=== PATIENT | female | born 1940 | race Caucasian/White ===

== ENCOUNTER 2016-10-08 09:45 | Inpatient (IN) | payer OTHER, MEDICARE ==
[~2016-10-08] VITALS: Ht 154.9 cm; Wt 56.7 kg
[~2016-10-08 09:45] MED LIST: ATI0.5 PO; BENAZEPRIL HCL/1 TAB; FER300 PO; FOL1 PO; GLU500 PO; LAC PO; LEVAQUIN250 MG PO; METFORMIN ER500 M1 PO; PROZ10 PO; THERAGRAN-M1 TA4 PO; THI100 PO
[2016-10-08] MEDS ORDERED: LIPI20 PO (10:12)
[2016-10-08] MEDS ORDERED: LASIX40 MG PO (10:13)
[2016-10-08] MEDS ORDERED: ONDANSETRON4 M3 PO (10:13)
[2016-10-08] MEDS ORDERED: ALDACTONE25 MG PO (10:13)
[2016-10-08] MEDS ORDERED: GLUCOPHAGE XR500 MG PO (10:13)
[2016-10-08] MEDS ORDERED: DIOVAN40 MG PO (10:14)
[2016-10-08 10:26] LABS: CARBON DIOXIDE 28.4 mmol/L (21-32); CHLORIDE SERUM 108 mmol/L (98-107); CREATININE SERUM 0.8 mg/dL (0.6-1.0); GLUCOSE SERUM 115 mg/dL (74-106); POTASSIUM SERUM 3.7 mmol/L (3.5-5.1); SODIUM SERUM 146 mmol/L (136-145)
[2016-10-08 10:33] LABS: ALBUMIN 4.2 g/dL (3.4-5.0); ALKALINE PHOSPHATASE 89 U/L (46-116); ALT/SGPT 31 U/L (14-59); AST/SGOT 65 U/L (15-37); BILIRUBIN TOTAL 0.5 mg/dL (0.20-1.00); TOTAL PROTEIN, SERUM 8.2 g/dL (6.4-8.2)
[2016-10-08 10:35] LABS: CHOLESTEROL 215 mg/dL (<200)
[2016-10-08 10:57] LABS: PLATELET COUNT 86 x10^3mcL (130-400); RED CELL DISTRIBUTION WIDTH 19.9 % (11.5-14.5)
[2016-10-08 11:18] LABS: BAND NEUTROPHIL 1 % (0-10); MONOCYTE 12 % (0-7); SEGMENTED NEUTROPHILS 49 % (37-75); rbc morphology (normal/abnorm) ABNORMAL (NORMAL)
[2016-10-08 11:19] LABS: PLATELET MORPHOLOGY PLATELETS DECREASED
[2016-10-08 12:15] VITALS: BP 156/65
[2016-10-08 13:59] LABS: T3 TOTAL 0.7 ng/mL
[2016-10-08 14:02] LABS: FREE T4 0.84 ng/dL (0.76-1.46); FREE THYROXINE INDEX 2.1 ug/dL (1.4-4.5)
[2016-10-08 17:03] VITALS: BP 130/62
[2016-10-08 20:02] VITALS: BP 142/76
[2016-10-09 01:52] LABS: UA SPECIFIC GRAVITY 1.015 (1.005-1.035); urine erythrocyte NEGATIVE (NEGATIVE)
[2016-10-09 01:55] LABS: microscopic required? YES
[2016-10-09 02:26] LABS: AMPHETAMINE QUAL UR NONE DETECTED (NEG <=1000)
[2016-10-09 05:29] VITALS: BP 166/82
[2016-10-09 09:01] LABS: PLATELET COUNT 61 x10^3mcL (130-400); RED CELL DISTRIBUTION WIDTH 19.5 % (11.5-14.5)
[2016-10-09 09:07] LABS: CALCIUM 8.2 mg/dL (8.5-10.1); CARBON DIOXIDE 27.6 mmol/L (21-32); CHLORIDE SERUM 105 mmol/L (98-107); CREATININE SERUM 0.6 mg/dL (0.6-1.0); GLUCOSE SERUM 105 mg/dL (74-106); MAGNESIUM 1.8 mg/dL (1.8-2.4); PHOSPHOROUS 2.9 mg/dL (2.5-4.9); SODIUM SERUM 140 mmol/L (136-145)
[2016-10-09 10:13] VITALS: BP 143/77
[2016-10-09 12:15] LABS: BAND NEUTROPHIL 1 % (0-10); MONOCYTE 15 % (0-7)
[2016-10-09 12:16] LABS: SEGMENTED NEUTROPHILS 52 % (37-75); rbc morphology (normal/abnorm) ABNORMAL (NORMAL)
[2016-10-09 12:17] LABS: PLATELET MORPHOLOGY PLATELETS DECREASED
[2016-10-09 15:40] VITALS: BP 144/66
[2016-10-09 17:41] VITALS: BP 131/70
[2016-10-09 20:34] VITALS: BP 149/75
[2016-10-10 05:40] VITALS: BP 144/80
[2016-10-10 06:29] LABS: CALCIUM 8.8 mg/dL (8.5-10.1); CARBON DIOXIDE 24.5 mmol/L (21-32); CHLORIDE SERUM 101 mmol/L (98-107); CREATININE SERUM 0.7 mg/dL (0.6-1.0); GLUCOSE SERUM 107 mg/dL (74-106); POTASSIUM SERUM 3.5 mmol/L (3.5-5.1); SODIUM SERUM 137 mmol/L (136-145)
[2016-10-10 06:42] LABS: PLATELET COUNT 77 x10^3mcL (130-400); RED CELL DISTRIBUTION WIDTH 19.5 % (11.5-14.5)
[2016-10-10 09:05] LABS: BAND NEUTROPHIL 1 % (0-10); BASOPHIL 0 % (0-2); MONOCYTE 8 % (0-7); PLATELET MORPHOLOGY PLATELETS DECREASED; SEGMENTED NEUTROPHILS 58 % (37-75); rbc morphology (normal/abnorm) ABNORMAL (NORMAL)
[2016-10-10 09:24] VITALS: BP 131/87
[2016-10-10 15:07] VITALS: BP 112/66
[2016-10-10 18:12] VITALS: BP 112/66
[2016-10-10 18:13] VITALS: BP 141/72
== END 2016-10-10 18:44 | disposition home or self-care (01) | DRG 917 ==
LOC: ED 09:45 → DU 11:00
PROVIDERS: ADMIT Family Medicine
DX: T51.0X1A Toxic effect of ethanol, accidental (unintentional), initial encounter (principal); G92 Toxic encephalopathy; N17.0 Acute kidney failure with tubular necrosis; K70.30 Alcoholic cirrhosis of liver without ascites; F10.229 Alcohol dependence with intoxication, unspecified; E11.9 Type 2 diabetes mellitus without complications; E78.00 Pure hypercholesterolemia, unspecified; F41.1 Generalized anxiety disorder; F32.9 Major depressive disorder, single episode, unspecified; Z68.23 Body mass index [BMI] 23.0-23.9, adult; Z87.891 Personal history of nicotine dependence; Z79.84 Long term (current) use of oral hypoglycemic drugs; Y90.8 Blood alcohol level of 240 mg/100 ml or more; Y92.009 Unspecified place in unspecified non-institutional (private) residence as the place of occurrence of the external cause
CPT/HCPCS: 82962; 83880; 84439; 97110-GP; 97116-GP; 97530-GP; G0480; J3411; J3475; J3490; J7030; Q0092

== ENCOUNTER 2016-11-13 11:26 | Inpatient (IN) | payer OTHER, MEDICARE ==
[~2016-11-13] VITALS: Ht 154.9 cm; Wt 59.0 kg
[~2016-11-13 11:26] MED LIST changes: +ALDACTONE25 MG PO; +DIOVAN40 MG PO; +GLUCOPHAGE XR500 MG PO; +LASIX40 MG PO; +LIPI20 PO; +ONDANSETRON4 M3 PO
[2016-11-13 12:51] LABS: CALCIUM 8.2 mg/dL (8.5-10.1); CARBON DIOXIDE 31.3 mmol/L (21-32); CHLORIDE SERUM 101 mmol/L (98-107); CREATININE SERUM 0.8 mg/dL (0.6-1.0); GLUCOSE SERUM 109 mg/dL (74-106); SODIUM SERUM 143 mmol/L (136-145)
[2016-11-13 12:58] LABS: ALBUMIN 3.7 g/dL (3.4-5.0); ALKALINE PHOSPHATASE 119 U/L (46-116); ALT/SGPT 20 U/L (14-59); AST/SGOT 45 U/L (15-37); BILIRUBIN TOTAL 0.5 mg/dL (0.20-1.00); CHOLESTEROL 183 mg/dL (<200); TOTAL PROTEIN, SERUM 7.3 g/dL (6.4-8.2)
[2016-11-13 13:38] LABS: PLATELET COUNT 125 x10^3mcL (130-400); RED CELL DISTRIBUTION WIDTH 20.3 % (11.5-14.5)
[2016-11-13] MEDS ORDERED: TRAMADOL HCL50 MG PO (14:06)
[2016-11-13] MEDS ORDERED: LEVOTHYROXIN0.025 M2 PO (14:07)
[2016-11-13] MEDS ORDERED: PROTONIX20 MG PO (14:08)
[2016-11-13] MEDS ORDERED: PROTONIX40 MG PO (14:08)
[2016-11-13 14:21] LABS: BAND NEUTROPHIL 1 % (0-10); MONOCYTE 4 % (0-7); SEGMENTED NEUTROPHILS 72 % (37-75)
[2016-11-13 14:22] LABS: BASOPHIL 1 % (0-2); PLATELET MORPHOLOGY D; rbc morphology (normal/abnorm) ABNORMAL (NORMAL)
[2016-11-13 15:28] VITALS: BP 126/53
[2016-11-13 16:15] LABS: MAGNESIUM 1.4 mg/dL (1.8-2.4); PHOSPHOROUS 3.6 mg/dL (2.5-4.9)
[2016-11-13 16:23] LABS: T3 TOTAL 0.61 ng/mL
[2016-11-13 16:26] LABS: FREE THYROXINE INDEX 2.1 ug/dL (1.4-4.5)
[2016-11-13 19:05] LABS: RED BLOOD CELLS 3.34 M/mm3 (4.10-5.10)
[2016-11-13 19:15] LABS: TOTAL IRON BINDING CAPACITY 419 ug/dL (250-450)
[2016-11-13 19:24] LABS: IRON 8 ug/dL (50-170)
[2016-11-13 22:53] VITALS: BP 129/65
[2016-11-13 23:12] LABS: microscopic required? YES; urine erythrocyte NEGATIVE (NEGATIVE)
[2016-11-13 23:47] LABS: AMPHETAMINE QUAL UR NONE DETECTED (NEG <=1000)
[2016-11-14] VITALS (8 sets, daily range): BP systolic 130–149; BP diastolic 54–87
[2016-11-14 06:49] LABS: CALCIUM 8.2 mg/dL (8.5-10.1); CARBON DIOXIDE 27.4 mmol/L (21-32); CHLORIDE SERUM 102 mmol/L (98-107); CREATININE SERUM 0.6 mg/dL (0.6-1.0); GLUCOSE SERUM 119 mg/dL (74-106); MAGNESIUM 2.4 mg/dL (1.8-2.4); POTASSIUM SERUM 4.1 mmol/L (3.5-5.1); SODIUM SERUM 141 mmol/L (136-145)
[2016-11-14 07:15] LABS: PLATELET COUNT 89 x10^3mcL (130-400); RED CELL DISTRIBUTION WIDTH 20.5 % (11.5-14.5)
[2016-11-14 10:31] LABS: BAND NEUTROPHIL 0 % (0-10); BASOPHIL 0 % (0-2); MONOCYTE 8 % (0-7); SEGMENTED NEUTROPHILS 78 % (37-75)
[2016-11-14 10:38] LABS: ovalocyte/elliptocyte 1+; rbc morphology (normal/abnorm) ABNORMAL (NORMAL)
[2016-11-14 10:39] LABS: target cell (codocyte) 1+
[2016-11-14 20:18] LABS: AMPHETAMINE QUAL UR NONE DETECTED (NEG <=1000)
[2016-11-15 06:16] VITALS: BP 137/62
[2016-11-15 07:12] LABS: CALCIUM 8.4 mg/dL (8.5-10.1); CARBON DIOXIDE 31.4 mmol/L (21-32); CHLORIDE SERUM 98 mmol/L (98-107); CREATININE SERUM 0.8 mg/dL (0.6-1.0); GLUCOSE SERUM 110 mg/dL (74-106); POTASSIUM SERUM 3.4 mmol/L (3.5-5.1); SODIUM SERUM 136 mmol/L (136-145)
[2016-11-15 09:05] VITALS: BP 115/54
[2016-11-15 09:33] LABS: BASOPHIL % 0.9 % (0-2)
[2016-11-15 09:34] LABS: PLATELET COUNT 93 x10^3mcL (130-400); RED CELL DISTRIBUTION WIDTH 18.6 % (11.5-14.5)
[2016-11-15 12:13] LABS: rbc morphology (normal/abnorm) ABNORMAL (NORMAL)
[2016-11-15 15:35] VITALS: BP 111/62
[2016-11-15] MEDS ORDERED: LEVOTHYROXIN0.025 M2 PO (16:22)
[2016-11-15] MEDS ORDERED: MAC100 PO (16:23)
[2016-11-15] MEDS ORDERED: LASIX40 MG PO (16:27)
[2016-11-15 16:31] VITALS: BP 111/62
== END 2016-11-15 17:05 | disposition home or self-care (01) | DRG 917 ==
LOC: ED 11:26 → DU 13:11
PROVIDERS: Family Medicine; Specialist; ADMIT Family Medicine
DX: T51.0X1A Toxic effect of ethanol, accidental (unintentional), initial encounter (principal); G92 Toxic encephalopathy; D68.69 Other thrombophilia; N39.0 Urinary tract infection, site not specified; F10.221 Alcohol dependence with intoxication delirium; E11.59 Type 2 diabetes mellitus with other circulatory complications; E83.42 Hypomagnesemia; E87.6 Hypokalemia; K70.30 Alcoholic cirrhosis of liver without ascites; I10 Essential (primary) hypertension; F32.9 Major depressive disorder, single episode, unspecified; F41.1 Generalized anxiety disorder; D69.59 Other secondary thrombocytopenia; E03.9 Hypothyroidism, unspecified; D50.8 Other iron deficiency anemias; Z79.84 Long term (current) use of oral hypoglycemic drugs; Z68.24 Body mass index [BMI] 24.0-24.9, adult; Y90.8 Blood alcohol level of 240 mg/100 ml or more; Y92.009 Unspecified place in unspecified non-institutional (private) residence as the place of occurrence of the external cause
CPT/HCPCS: 36600; 82962; 83880; 84439; G0480; J2405; J2916; J3475; J3490; J7030; J7613; Q0092

== ENCOUNTER 2017-06-22 14:52 | Inpatient (IN) | payer OTHER, MEDICARE ==
[~2017-06-22] VITALS: Ht 154.9 cm; Wt 66.4 kg
[~2017-06-22 14:52] MED LIST changes: +LEVOTHYROXIN0.025 M2 PO; +MAC100 PO; +PROTONIX20 MG PO; +PROTONIX40 MG PO; +TRAMADOL HCL50 MG PO
[2017-06-22 17:07] LABS: PLATELET COUNT 144 x10^3mcL (130-400)
[2017-06-22 17:08] LABS: CALCIUM 8.8 mg/dL (8.5-10.1); CARBON DIOXIDE 29.2 mmol/L (21-32); CHLORIDE SERUM 104 mmol/L (98-107); CREATININE SERUM 0.7 mg/dL (0.6-1.0); GLUCOSE SERUM 104 mg/dL (74-106); POTASSIUM SERUM 4.2 mmol/L (3.5-5.1); RED CELL DISTRIBUTION WIDTH 18.4 % (11.5-14.5); SODIUM SERUM 146 mmol/L (136-145)
[2017-06-22 17:21] LABS: ALBUMIN 3.8 g/dL (3.4-5.0); ALKALINE PHOSPHATASE 71 U/L (46-116); ALT/SGPT 51 U/L (14-59); AST/SGOT 108 U/L (15-37); BILIRUBIN TOTAL 0.46 mg/dL (0.20-1.00); LIPASE 224 IU/L (73-393); TOTAL PROTEIN, SERUM 7.8 g/dL (6.4-8.2)
[2017-06-22 17:54] LABS: BAND NEUTROPHIL 2 % (0-10); BASOPHIL 0 % (0-2); MONOCYTE 4 % (0-7); SEGMENTED NEUTROPHILS 47 % (37-75)
[2017-06-22 17:56] LABS: rbc morphology (normal/abnorm) ABNORMAL (NORMAL)
[2017-06-22 17:57] LABS: target cell (codocyte) 1+
[2017-06-22 19:22] LABS: PHOSPHOROUS 3.3 mg/dL (2.5-4.9)
[2017-06-22 19:27] LABS: T3 TOTAL 0.65 ng/mL
[2017-06-22 19:28] LABS: FREE T4 0.7 ng/dL (0.76-1.46); FREE THYROXINE INDEX 1.5 ug/dL (1.4-4.5); T4(THYROXINE) 4.7 ug/dL (4.7-13.3)
[2017-06-22 19:51] LABS: CHOLESTEROL/HDL RATIO 1.1
[2017-06-22 20:20] VITALS: BP 149/62
[2017-06-22] MEDS ORDERED: LASIX40 MG PO (22:17)
[2017-06-23 00:18] LABS: UA SPECIFIC GRAVITY 1.015 (1.005-1.035); microscopic required? YES; urine erythrocyte NEGATIVE (NEGATIVE)
[2017-06-23 00:46] LABS: AMPHETAMINE QUAL UR NONE DETECTED (NEG <=1000)
[2017-06-23 06:07] VITALS: BP 151/82
[2017-06-23 06:18] LABS: CALCIUM 7.9 mg/dL (8.5-10.1); CARBON DIOXIDE 23.6 mmol/L (21-32); CHLORIDE SERUM 106 mmol/L (98-107); CREATININE SERUM 0.6 mg/dL (0.6-1.0); GLUCOSE SERUM 69 mg/dL (74-106); MAGNESIUM 1.5 mg/dL (1.8-2.4); PHOSPHOROUS 2.8 mg/dL (2.5-4.9); SODIUM SERUM 145 mmol/L (136-145)
[2017-06-23 07:02] LABS: PLATELET COUNT 101 x10^3mcL (130-400); RED CELL DISTRIBUTION WIDTH 18.3 % (11.5-14.5)
[2017-06-23 08:50] VITALS: BP 156/76
[2017-06-23 10:20] LABS: BAND NEUTROPHIL 6 % (0-10); BASOPHIL 0 % (0-2); MONOCYTE 10 % (0-7); SEGMENTED NEUTROPHILS 54 % (37-75)
[2017-06-23 10:22] LABS: PLATELET MORPHOLOGY PLATELETS DECREASED; rbc morphology (normal/abnorm) ABNORMAL (NORMAL)
[2017-06-23 14:05] VITALS: BP 142/85
[2017-06-23 16:59] VITALS: BP 175/77
[2017-06-23 21:05] VITALS: BP 151/78
[2017-06-24 06:24] VITALS: BP 147/86
[2017-06-24 07:43] LABS: CALCIUM 8.5 mg/dL (8.5-10.1); CARBON DIOXIDE 26.7 mmol/L (21-32); CHLORIDE SERUM 101 mmol/L (98-107); CREATININE SERUM 0.6 mg/dL (0.6-1.0); GLUCOSE SERUM 98 mg/dL (74-106); MAGNESIUM 1.6 mg/dL (1.8-2.4); PHOSPHOROUS 2.2 mg/dL (2.5-4.9); SODIUM SERUM 140 mmol/L (136-145)
[2017-06-24 07:44] LABS: BASOPHIL % 0.5 % (0-2)
[2017-06-24 07:45] LABS: PLATELET COUNT 84 x10^3mcL (130-400); RED CELL DISTRIBUTION WIDTH 17.2 % (11.5-14.5)
[2017-06-24 08:15] VITALS: BP 144/84
[2017-06-24 10:28] VITALS: Ht 154.9 cm; Wt 66.4 kg
[2017-06-24 13:18] VITALS: BP 121/72
[2017-06-24 17:02] VITALS: BP 124/74
[2017-06-24 20:05] LABS: CALCIUM 8.6 mg/dL (8.5-10.1); CARBON DIOXIDE 27.5 mmol/L (21-32); CHLORIDE SERUM 102 mmol/L (98-107); CREATININE SERUM 0.8 mg/dL (0.6-1.0); GLUCOSE SERUM 137 mg/dL (74-106); POTASSIUM SERUM 4.3 mmol/L (3.5-5.1); SODIUM SERUM 138 mmol/L (136-145)
[2017-06-24 20:52] VITALS: BP 129/78
[2017-06-25 05:18] VITALS: BP 133/73
[2017-06-25 06:44] LABS: BASOPHIL % 0.4 % (0-2)
[2017-06-25 06:56] LABS: PLATELET COUNT 93 x10^3mcL (130-400); RED CELL DISTRIBUTION WIDTH 17.9 % (11.5-14.5)
[2017-06-25 06:57] LABS: CALCIUM 8.6 mg/dL (8.5-10.1); CARBON DIOXIDE 24.8 mmol/L (21-32); CHLORIDE SERUM 102 mmol/L (98-107); CREATININE SERUM 0.8 mg/dL (0.6-1.0); GLUCOSE SERUM 122 mg/dL (74-106); MAGNESIUM 1.9 mg/dL (1.8-2.4); PHOSPHOROUS 3.2 mg/dL (2.5-4.9); POTASSIUM SERUM 3.4 mmol/L (3.5-5.1); SODIUM SERUM 138 mmol/L (136-145)
[2017-06-25 08:35] VITALS: BP 125/79
[2017-06-25 13:06] VITALS: BP 107/51
[2017-06-25] MEDS ORDERED: LIB25 PO ×2 (16:17)
[2017-06-25] MEDS ORDERED: LIB10 PO ×2 (16:18→16:19)
[2017-06-25] MEDS ORDERED: PRI20 PO (16:20)
[2017-06-25] MEDS ORDERED: FOL1 PO (16:21)
[2017-06-25] MEDS ORDERED: THI100 PO (16:21)
[2017-06-25] MEDS ORDERED: BACTRIM1 TAB PO (16:28)
[2017-06-25 16:52] VITALS: BP 107/51
[2017-06-25 17:35] VITALS: BP 148/64
[2017-06-25 18:02] VITALS: BP 110/68
== END 2017-06-25 18:35 | disposition home or self-care (01) | DRG 897 ==
LOC: ED 14:52 → DU 18:28
PROVIDERS: Emergency Medicine; Family Medicine
DX: F10.239 Alcohol dependence with withdrawal, unspecified (principal); F33.1 Major depressive disorder, recurrent, moderate; N39.0 Urinary tract infection, site not specified; E87.0 Hyperosmolality and hypernatremia; F10.129 Alcohol abuse with intoxication, unspecified; E03.9 Hypothyroidism, unspecified; H55.00 Unspecified nystagmus; F41.1 Generalized anxiety disorder; I50.9 Heart failure, unspecified; E11.65 Type 2 diabetes mellitus with hyperglycemia; E78.5 Hyperlipidemia, unspecified; E83.42 Hypomagnesemia; E83.51 Hypocalcemia; E83.39 Other disorders of phosphorus metabolism; E87.6 Hypokalemia; E11.51 Type 2 diabetes mellitus with diabetic peripheral angiopathy without gangrene; I11.0 Hypertensive heart disease with heart failure; Z82.49 Family history of ischemic heart disease and other diseases of the circulatory system; Z86.69 Personal history of other diseases of the nervous system and sense organs; Z82.3 Family history of stroke; Z87.891 Personal history of nicotine dependence; Z91.14 Patient's other noncompliance with medication regimen; Z83.3 Family history of diabetes mellitus
CPT/HCPCS: 82962; 83880; 84439; 97110-GP; G0480; J0696; J3475; J3480; J3490; J7030; J7040; Q0092

== ENCOUNTER 2018-09-01 14:40 | Inpatient (IN) | payer OTHER, MEDICARE ==
[~2018-09-01] VITALS: Ht 154.9 cm; Wt 68.0 kg
[~2018-09-01 14:40] MED LIST changes: +BACTRIM1 TAB PO; +LIB10 PO; +LIB25 PO; +PRI20 PO
[2018-09-01 14:47] VITALS: Ht 154.9 cm; Wt 68.0 kg
--- NOTE | 2018-09-01 15:56 | NUR ---
PT AWAKE AND ALERT. PT BIB SON WITH C/O GENERALIZED WEAKNESS AND BLOODY EMESIS. PT AAOX4. PT ON FULL CM. SON AT BEDSIDE. PT APPEARS TO BE IN MODERATE DISTRESS. PT AWAITING MSE IN POSITION OF COMFORT.
--- NOTE | 2018-09-01 16:29 | NUR ---
DR KEE AT BEDSIDE FOR MSE
--- NOTE | 2018-09-01 17:00 | NUR ---
CLAIMS ADJUSTER AT BEDSIDE FOR MSE
[2018-09-01 17:27] LABS: BASOPHIL % 0.3 % (0-2); PLATELET COUNT 136 x10^3mcL (130-400)
--- NOTE | 2018-09-01 17:30 | NUR ---
PT REPORTS SHE IS FEELING A LITTLE BETTER AFTER MEDICATIONS BUT STATES SHE IS TIRED BECAUSE SHE DID NOT SLEEP ALL NIGHT
[2018-09-01 17:32] LABS: RED CELL DISTRIBUTION WIDTH 16.7 % (11.5-14.5)
[2018-09-01 17:38] LABS: CALCIUM 8.8 mg/dL (8.5-10.1); CARBON DIOXIDE 25.5 mmol/L (21-32); CHLORIDE SERUM 95 mmol/L (98-107); CREATININE SERUM 1.3 mg/dL (0.6-1.0); GLUCOSE SERUM 230 mg/dL (74-106); POTASSIUM SERUM 4.3 mmol/L (3.5-5.1); SODIUM SERUM 135 mmol/L (136-145)
[2018-09-01 17:42] LABS: ALBUMIN 3.7 g/dL (3.4-5.0); ALKALINE PHOSPHATASE 58 U/L (46-116); ALT/SGPT 60 U/L (14-59); AST/SGOT 84 U/L (15-37); BILIRUBIN TOTAL 0.8 mg/dL (0.20-1.00); LIPASE 39 IU/L (73-393); TOTAL PROTEIN, SERUM 7.1 g/dL (6.4-8.2)
--- NOTE | 2018-09-01 17:49 | NUR ---
PT RESTING ON ED GURNEY IN POSTION OF COMFORT. PT ON FULL CM. PT EASILY AROUSABLE. NAD. RESP E/U. WILL CONTINUE TO MONITOR
--- NOTE | 2018-09-01 18:54 | NUR ---
PT MEDICATED PER DOCTORS ORDERS. NAD. RESP E/U. PT ON FULL CM. CALL LIGHT WITHIN REACH.
[2018-09-01] MEDS ORDERED: FERROUS SULFAT325 M2 PO (19:07)
--- NOTE | 2018-09-01 19:11 | NUR ---
REPORT GIVEN TO AMADO GAS METER PROVER NURSE TO ASSUME CARE OF PT
--- NOTE | 2018-09-01 19:15 | NUR ---
RECEIVED REPORT FROM CECILLE CALIXTO AND ASSUMED CARE OF PATIENT. PT. SYED ON CAMRYN IN POSITION OF COMFOT. BREATHING E/U. NOT IN ANY APPARENT DISTRESS AT THIS TIME. DENIES PAIN. ON FULL SURVEY RESEARCHER, IV CIPRO AND NS INFUSING ON IV PUMP. IV SITE CLEAN DRY, AND INTACT, NO S/S OF INFILTRATION. CALL LIGHT IN REACH. WILL CONTINUE TO MONITOR.
--- NOTE | 2018-09-01 19:55 | NUR ---
PT. STATES SHE DOES NOT REMEMBER WHAT MEDICATIONS SHE IS CURRENTLY TAKING.
--- NOTE | 2018-09-01 20:05 | NUR ---
SECOND LITER OF NS COMPLETED. PT. TOLERATED WELL. CALL LIGHT IN REACH. WILL CONTINUE TO MONITOR.
--- NOTE | 2018-09-01 22:05 | NUR ---
PT. ASSISTED TO BEDPAN. VOIDED APROX 150ML OF CLEAR EVA URINE. PT. REPORTS SHE WOULD LIKT TO WEAR HER DIAPER FROM HOME BECAUSE SHE IS INCONTINENT AT TIMES. CALL LIGHT IN REACH, WILL CONTINUE TO MONITOR.
--- NOTE | 2018-09-01 23:00 | NUR ---
PT. LAYING ON CAMRYN IN POSITON OF COMFORT. BREATHING E/U. DR. KEE AT BEDSIDE TO DISCUSS RESULTS AND PLAN OF CARE.
--- NOTE | 2018-09-01 23:25 | NUR ---
PT. STARTE ON 3RD LITER OF NS BOLUS. CALL LIGHT IN REACH. WILL CONTINUE TO MONITOR
--- NOTE | 2018-09-01 23:47 | NUR ---
REPORT GIVEN TO RANDY CALIXTO FOR FURTHER CARE OF PATIENT.
[2018-09-01 23:55] LABS: MAGNESIUM 1.6 mg/dL (1.8-2.4); PHOSPHOROUS 2.5 mg/dL (2.5-4.9)
[2018-09-01 23:57] LABS: CHOLESTEROL/HDL RATIO 1.3
[2018-09-02 00:04] LABS: FREE T4 0.74 ng/dL (0.76-1.46); T3 TOTAL 0.64 ng/mL
[2018-09-02 00:07] LABS: FREE THYROXINE INDEX 1.5 ug/dL (1.4-4.5); T4(THYROXINE) 4.3 ug/dL (4.7-13.3)
--- NOTE | 2018-09-02 00:37 | NUR ---
PT. TRASPORTED TO MED SURG VIA GURNEY. STABLE AT TIME OF TRANSFER
[2018-09-02 00:50] VITALS: BP 137/60
--- NOTE | 2018-09-02 01:00 | NUR ---
RECEIVED PT FROM ER. PT ADMIT FOR UPPER GI BLEED, VOMITTING. PT IS A/O X4, VERBAL RESPONSIVE, ABLE TO TELL WHAT SHE NEEDS. LUNG SOUND CLEAR BILATERAL, NO COUGH, 2L/MIN O2 VIA NC. PO2 96% DENY ANY CHEST PAIN OR DISCOMFORT, BOWEL SOUND PRESENT ALL 4 QUADRANTS, ROUND, NO TENDER, DENY ANY N/V AT THIS TIME. PEDAL PULSE PRESENT BOTH FEET ,NO EDEMA, IV AT RIGHT AC, NO LEAKING, NO INFILTRATION. ALL ADLS ASSIST, ALL NEED MET, CALL LIGHT IN REACH, WILL CONTINUE TO MONITOR.
[2018-09-02 01:18] LABS: microscopic required? NO
[2018-09-02 01:35] LABS: UA SPECIFIC GRAVITY <=1.005 (1.005-1.035); urine erythrocyte NEGATIVE (NEGATIVE)
[2018-09-02 01:52] LABS: AMPHETAMINE QUAL UR NONE DETECTED (See below)
--- NOTE | 2018-09-02 05:01 | NUR ---
PT REMAINED ASLEEP.NO DISTRESS NOTED.DENIES ANY PAIN AT THIS TIME.NO C/O VOMITING NOTED.BED IN LOWEST POSITION,CALL LIGHT WITHIN REACH. WILL CONTINUE TO MONITOR.
[2018-09-02 05:22] VITALS: BP 113/72
--- NOTE | 2018-09-02 07:10 | NUR ---
RECEIVED REPORT FROM RANDY CALIXTO. PT RESTING COMFORATBLY IN BED WITH DR SIMMONS AT BEDSIDE. PT ON O2 2L NC. NO C/O SOB AND NO DISTRESS NOTED. IV TO RAC IS PATENT AND INFUSING NS @ 100 ML/HR. NO REDNESS OR PAIN. ALL QUESTIONS AND CONCERNS ADDRESSED.
--- NOTE | 2018-09-02 07:20 | NUR ---
CARE ENDORSED TO DAY NURSE HARMONY.
[2018-09-02 07:51] LABS: BASOPHIL % 0.6 % (0-2); PLATELET COUNT 98 x10^3mcL (130-400); RED CELL DISTRIBUTION WIDTH 16.7 % (11.5-14.5)
[2018-09-02 09:11] LABS: CALCIUM 7.8 mg/dL (8.5-10.1); CARBON DIOXIDE 26.5 mmol/L (21-32); CHLORIDE SERUM 105 mmol/L (98-107); CREATININE SERUM 0.9 mg/dL (0.6-1.0); GLUCOSE SERUM 101 mg/dL (74-106); POTASSIUM SERUM 4.1 mmol/L (3.5-5.1); SODIUM SERUM 140 mmol/L (136-145)
--- NOTE | 2018-09-02 09:44 | NUR ---
IN TO SEE PATIENT AND ADMINISTER MEDICATION. PT RESTING COMFORATBLY IN BED. ALL NEEDS MET. PT IV HAS INFILTRATED. WILL RETURN TO INITIATE NEW ACCESS AND CONITUE MEDICATION.
[2018-09-02 09:45] VITALS: BP 113/71
--- NOTE | 2018-09-02 10:30 | NUR ---
DR CAMARGO IN TO SEE AND ASSESS PATIENT. DISCUSSED HISTORY OF PRESENT ILLNESS, DRINKING HISTORY, AND EGD PROCEDURE. PT VERBALIZED UNDERSTANDING AND HAD NO QUESTIONS. NEW IV SITE IS THE RT HAND. CONSENTS SIGNED AND CHECKLIST COMPLETE.
--- NOTE | 2018-09-02 11:50 | NUR ---
REPORT GIVEN TO SALVADOR CALIXTO IN GI. ALL QUESTIONS AND CONCERNS ADDRESSED. WILL BE UP SOON TO TAKE PATIENT.
--- NOTE | 2018-09-02 12:10 | NUR ---
PT TAKEN DOWN FOR EGD ACCOMPANIED BY SALVADOR CALIXTO.
--- NOTE | 2018-09-02 12:20 | NUR ---
PATIENT ARRIVED ON ICU UNIT ACCOMPANIED BY SALVADOR Evans RN AND LOLA CALIXTO FOR EGD. PATIENT PLACED ON ICU CARDIAC MONITORING #1.
--- NOTE | 2018-09-02 12:22 | NUR ---
DR CAMARGO, SALVADOR RN AND POULTRY CULLER AT BEDSIDE FOR EGD. VITALS BP 125/69 (MAP 85), HR 75, RR 14, O2 SAT 99% ON 2L N/C.
--- NOTE | 2018-09-02 12:47 | NUR ---
EGD COMPLETED. REPORT RECEIVED FROM SALVADOR CALIXTO. PATIENT RECEIVED 100MCG FENTANYL IVP, VERSED 6MG IVP, BENADRYL 50 MG IVP AND 10 MG REGLAN IVP. PATIENT TOLERATED PROCEDURE WITHOUT INCIDENT. PATIENT TRANSFERRED TO ICU BED#3 FOR RECOVERY. VITALS STABLE BP 121/59, HR 100, RR 16, O2 SAT 99% ON 2L N/C.
--- NOTE | 2018-09-02 13:20 | NUR ---
PATIENT STATED SHE NEEDED TO USE THE RESTROOM. PATIENT NOTED TO HAVE ALREADY VOIDED. PATIENT CLEANED WITH KAYDEN-PAD, UNDERGARMENT AND GOWN CHANGED AT THIS TIME.
--- NOTE | 2018-09-02 13:32 | NUR ---
SENIOR PRODUCTION PLANNER AT BEDSIDE FOR BLOOD DRAW.
--- NOTE | 2018-09-02 14:07 | NUR ---
RECEIVED REPORT FROM SALVADOR CALIXTO. PT TOLERATED PROCEDURE WELL. VITALS STABLE (SEE DOCUMENTATION). AWAITING PT RETURN TO FLOOR.
--- NOTE | 2018-09-02 14:25 | NUR ---
PT RETURNED FROM PROCEDURE. PT RESTING IN BED. DROWSY BUT AROUSABLE. IV TO RT HAND IS PATENT AND INFUSING SANDOSTATIN @ 25 ML/HR. PT PLACED ON O2 2L NC. NO DISTRESS NOTED. NO REDNESS OR PAIN. WILL RETURN WHEN PATIENT IS MORE ALERT TO ADMINISTER MEDICATION.
--- NOTE | 2018-09-02 14:55 | NUR ---
PAGE GATE TO RESULTS OF THE H.PYLORI POSITIVE.
[2018-09-02 16:54] VITALS: BP 111/77
--- NOTE | 2018-09-02 17:07 | NUR ---
REPORT GIVEN TO JUAN CALIXTO. PT RESTING COMFORTABLY IN BED WITH AT BEDSIDE. ALL NEEDS MET. ALL QUESTIONS AND CONCERNS ADDRESSED. ALL CARES ENDORSED.
--- NOTE | 2018-09-02 17:09 | NUR ---
ASSUMED CARE OF PATIENT, RECIEVED REPORT FROM PARKER CALIXTO. PATIENT PLACED ON TELEMONITOR #4. CURRENTLY NSR. NO COMPLAINTS OF CP OR PRESSURE. RESTING IN ROOM WITH NO COMPLAINTS OF PAIN OR DISCOMFORT. AT BEDSIDE.
[2018-09-02 17:53] VITALS: BP 94/52
--- NOTE | 2018-09-02 18:22 | NUR ---
EPISODE OF STOOL INCONTINENCE. BLACK TARRY STOOL. PATIENT ASYMPTOMATIC.
--- NOTE | 2018-09-02 18:44 | NUR ---
PATIENT SEEN RESTING IN BED WITH UNLABORED AND EQUAL RESPIRATIONS. NO COMPLAINTS OF PAIN OR DISCOMFORT. NO CP OR PRESSURE. DENIES NAUSEA AND VOMITTING. WILL ENDORSE CARE TO ONCOMING RN.
--- NOTE | 2018-09-02 18:53 | NUR ---
DR. HAMMOND PAGE GATE ABOUT BLACK TARRY STOOL.
--- NOTE | 2018-09-02 19:59 | NUR ---
RECEIVED AWAKE SITTING AT THE FOOT PART OF THE BED, NOTICED PT'S HOSPITAL GOWN SATURATED WITH BLACKISH LIQUID STOOL IN LARGE AMOUNT. PARTIA BED BATH GIVEN BY NURSE ASSIGNES. KEPT CLEAN AND DRY. IMMODIUM 2MG PO GIVEN PRN MEDICATION. ON TELE #4 SHOWS SR. DENIES ANYN CHEST PAIN/DISOCMFORT. ABDOMINAL PAIN 2/10, TOLERABLE AT THIS TIME. PLACED CALL LIGHT WITHIN REACH, INSTRUCTED TO CALL FOR ANY ASSISTANCE NEEDED AND VERBALIZED UNDERSTANIDNG.
[2018-09-02 20:53] VITALS: BP 111/54
--- NOTE | 2018-09-02 22:00 | NUR ---
ON CLEAR DIET, JELLO FIVEN PER PATIENT'S REQUEST TOLERATED WELL. NO NAUSE/VOMITN NOTED.
--- NOTE | 2018-09-03 00:01 | NUR ---
EYES CLOSED, NO FACIAL GRIMACING NOTED. RESPIRATION EVEN AND UNLABORED. NO /S SO OF PAIN/DISCOMFORT. CALL LIGTH WITHIN REACH.
--- NOTE | 2018-09-03 02:27 | NUR ---
INCONTINENT OF BOWEL, HAD LARGE BLACKIS STOOL LIQUID FORM IN CONSISTENCY. KEPT CLEAN AND DRY.
--- NOTE | 2018-09-03 02:30 | NUR ---
CONTINUES ON SANDOSTATIN DRIP AT 25ML/HR VIA PERIPHERAL LINE . IV SITE INTACT AND PATENT. NO S/S OF GI DISCOMFORT AT THIS TIME.
[2018-09-03 05:00] VITALS: BP 116/71
[2018-09-03 05:47] VITALS: BP 95/50
--- NOTE | 2018-09-03 06:07 | NUR ---
IV ACCESS AT THE RAC LEAKING WITH REDNESS AT THE IV SITE. NEW IV ACCESS STARTED AT THE LAC USING G#20 WITH FOOD BLOOD FLOW RETURN. CONTINUES ON IVF NS AT 70ML/HR AND SANDOSTATIN DRIP AT 25ML/HR . NO NAUSEA VOMITNG NOTED. ALL NEEDS ATTENDED.
--- NOTE | 2018-09-03 07:25 | NUR ---
RECEIVED PT IN NO ACUTE DISTRESS. RESTING IN BED. AAOX4, CONFUSED AND FORGETFUL AT TIMES. RESP EVEN AND UNLABORED ON RA. IVF INFUSING, NO REDNESS OR SWELLING NOTED. BED IN LOW POSITION, CALL LIGHT WITHIN REACH. WILL CONTINUE TO MONITOR.
[2018-09-03 07:36] LABS: ALKALINE PHOSPHATASE 48 U/L (46-116); ALT/SGPT 50 U/L (14-59); AST/SGOT 108 U/L (15-37); CALCIUM 8.1 mg/dL (8.5-10.1); CARBON DIOXIDE 27.2 mmol/L (21-32); CHLORIDE SERUM 102 mmol/L (98-107); CREATININE SERUM 0.9 mg/dL (0.6-1.0); GLUCOSE SERUM 150 mg/dL (74-106); MAGNESIUM 1.8 mg/dL (1.8-2.4); PHOSPHOROUS 2.2 mg/dL (2.5-4.9); POTASSIUM SERUM 3.4 mmol/L (3.5-5.1); SODIUM SERUM 138 mmol/L (136-145)
[2018-09-03 07:37] LABS: ALBUMIN 3.1 g/dL (3.4-5.0); TOTAL PROTEIN, SERUM 5.9 g/dL (6.4-8.2)
[2018-09-03 08:46] LABS: BASOPHIL % 0.7 % (0-2); PLATELET COUNT 101 x10^3mcL (130-400); RED CELL DISTRIBUTION WIDTH 16.6 % (11.5-14.5)
[2018-09-03 09:29] VITALS: BP 118/64
--- NOTE | 2018-09-03 12:46 | NUR ---
PT SITTING UP IN BED EATING LUNCH. NO ACUTE DISTRESS. NO C/O N/V OR PAIN. IVF INFUSING, NO REDNESS OR SWELLING. CALL LIGHT WITHIN REACH. WILL CONTINUE TO MONITOR.
[2018-09-03 13:30] VITALS: BP 100/56
[2018-09-03 18:05] VITALS: BP 100/56
--- NOTE | 2018-09-03 18:55 | NUR ---
PT SITTING UP IN BED EATING DINNER. NO ACUTE DISTRESS. NO C/O N/V OR ABD PAIN. IV TO LAC LEAKING, DC'D WITH CATHETER INTACT. PT REQUESTED TO HAVE NEW IV INSERTED AFTER SHE FINISHED EATING. BED IN LOW POSITION, CALL LIGHT WITHIN REACH. WILL ENDORSE ONCOMING SHIFT.
--- NOTE | 2018-09-03 19:10 | NUR ---
CARE ASSUMED FROM OUTGOING RN. PT SITTING UP IN BED EATING DINNER. NO ACUTE DISTRESS NOTED. EVEN AND UNLABORED RESPIRATIONS NOTED ON RA. DENIES ANY PAIN AT THIS TIME. IV STARTED BY DAY SHIFT RN ON LEFT HAND INTACT AND PATENT RUNNING FLUIDS PER EMAR. BED IN LOWEST POSITION. SIDE RAILS UP X2. CALL LIGHT WITHIN REACH. WILL CONTINUE TO MONITOR.
[2018-09-03 20:35] VITALS: BP 93/49
--- NOTE | 2018-09-04 00:02 | NUR ---
PT SLEEPING COMFORTABLY IN BED ON LEFT SIDE. NO ACUTE DISTRESS NOTED. EVEN AND UNLABORED RESPIRATIONS NOTED ON RA. IV PATENT AND INTACT RUNNING FLUIDS PER EMAR. BED IN LOWEST POSITION. SIDE RAILS UPX2. CALL LIGHT WITHIN REACH. WILL CONTINUE TO MONITOR.
[2018-09-04 05:19] VITALS: BP 105/64
--- NOTE | 2018-09-04 06:45 | NUR ---
PT SLEPT COMFORTABLY IN INTERVALS THROUGHOUT THE NIGHT. NO ACUTE CHANGES OR DISTRESS NOTED. EVEN AND UNLABORED RESPIRATIONS NOTED ON RA. DENIES ANY PAIN AT THIS TIME. IV PATENT AND INTACT RUNNING FLUIDS PER EMAR. ALL SCHEDULED MEDICATIONS GIVEN ON TIME. BED IN LOWEST POSITION. SIDE RAILS UP X2. CALL LIGHT WITHIN REACH. WILL ENDORSE TO ONCOMING SHIFT.
[2018-09-04 07:26] LABS: BASOPHIL % 0.4 % (0-2)
--- NOTE | 2018-09-04 07:35 | NUR ---
RECEIVED PT IN BED A/A/OX3 FORGETFUL AT TIMES ON ETOH PROTOCOL. RESP EVEN AND UNLABORED WITH CLEAR BS BILAT. DENIES ANY SOB/CP/PRESSURE. NO EDEMA NOTED WITH IVF TO LH NS AT 30ML/HR. ABD SOFT, NONTENDER WITH ACTIVE BSX4. DENIES ANY FURTHER N/V AT THIS TIME. NO FURTHER EPISODES OF HATEMESIS. PT S/P EGD WITH TX OF VERICES WITH HEMOCLIPS. VOIDING FREELY WITH OCC STRESS INCONTINENCE. AMBULATORY WITH ASSISTANCE WITH MILD GEN WEAKNESS. RT 4TH DIGIT WITH MISSING FINGER NAIL, AMBULANCE ATTENDANT. CALL LIGHT IN REACH WITH BED ALARM IN PLACE FOR SAFETY. PT INSTRUCETED TO CALL FOR ASSISTANCE. CALL LIGHT IN REACH NEEDS ATTENDED TO.
[2018-09-04 07:36] LABS: CALCIUM 8.3 mg/dL (8.5-10.1); CARBON DIOXIDE 24.8 mmol/L (21-32); CHLORIDE SERUM 106 mmol/L (98-107); CREATININE SERUM 0.8 mg/dL (0.6-1.0); GLUCOSE SERUM 158 mg/dL (74-106); MAGNESIUM 1.8 mg/dL (1.8-2.4); POTASSIUM SERUM 4.3 mmol/L (3.5-5.1); SODIUM SERUM 139 mmol/L (136-145)
[2018-09-04 07:41] LABS: PLATELET COUNT 104 x10^3mcL (130-400); RED CELL DISTRIBUTION WIDTH 16.9 % (11.5-14.5)
[2018-09-04 08:21] VITALS: BP 115/61
--- NOTE | 2018-09-04 11:57 | NUR ---
PATIENT STATED THAT THEY WERE HAVING A LOT OF NAUSEA, AND WOULD LIKE MEDICATION. PATIENT MEDICATED, SEE EMAR. PATIENT CURRENTLY STABLE, WILL CONTINUE TO MONITOR.
[2018-09-04 12:00] VITALS: BP 119/69
--- NOTE | 2018-09-04 12:25 | NUR ---
MADE ROUNDS, PATIENT RESTING COMFORTABLY IN BED, WILL CONTINUE TO MONITOR.
--- NOTE | 2018-09-04 12:47 | NUR ---
PATIENT ASKED FOTR JULIO AND CREAMER. MADE PATIENT AWARE THAT FNS WAS NOTIFIED AT THIS TIME.
[2018-09-04] MEDS ORDERED: FLA500 PO (13:01)
[2018-09-04] MEDS ORDERED: BIA500 PO (13:02)
[2018-09-04] MEDS ORDERED: LAC30L PO (13:04)
[2018-09-04] MEDS ORDERED: PROTONIX40 MG/Pac1 PO (13:07)
[2018-09-04] MEDS ORDERED: REG10 PO (13:09)
[2018-09-04] MEDS ORDERED: NATURAL IRON65 MG PO (13:10)
[2018-09-04] MEDS ORDERED: PROPRANOLOL HCL10 MG PO (13:24)
--- NOTE | 2018-09-04 13:27 | NUR ---
Initial Nutrition Assessment- 244/B MARQUEZ, DADA IA HR Dx: Upper GI bleed PMHx: Hypertension, ETOH abuse w/upper GI bleed, Liver Cirrhosis , Hypothyroidism PSHx: Mary Venegas Tear repair, Hemmorhoidectomy Labs: BG 158H, BUN 20H, WBC 4.4L, AST 108H Meds: Aldactone, folic acid, reglan, synthyroid, theragran, vitamin B-1, zofran Diet: Regular PO Intake: (09/03) 50% Ht: 154.94 cm (61") Wt: 68 kg (149#) BMI: 28.3 kg/m2 (overweight) IBW:105# (48 kg) %IBW: 141 UBW: unable to access Age: 78/F Food Allergies: NKFA Skin: intact Yuriy: 20 Edema: none GI: last BM 09/02 Per H&P, pt is a 78yo female with PMH of heavy ETOH abuse with liver cirrhosis and Esophageal bleeding, Medication non-compliance, Hypothyroidism and HTN who presented to the ER from home with complaints of persistent vomiting for [address] day[address] RDN visit (09/04): pt said that her appetite is 'fair' and she does not have any N/V/D/C at this time. Pt had questions regarding diet for liver cirrhosis. Diet education on liver cirrhosis was provided. Problem with: N: no V: no D: no C: no Problems with: Chewing/Swallowing: no Current appetite: Fair Recent wt change: pt was not aware Vitamin/Supplement use: Iron, folic acid, B-1 Special diet at home: Regular Physical activity: unable to access Education: [facility] handout on "Cirrhosis Nutrition therapy" was provided and explained. Topics like eating small frequent meals were discussed. Patient verbalized understanding and did not have any questions at this time. Estimated Nutritional Needs Based on ideal body weight 48 kg Energy: 8286-9514 kcal/d (30-35 kcal/kg-cirrhosis) Protein: 38-48 g/d (0.8-1.0 g/kg)-maintenance and preservation of lean body mass Fluid: 9751-5882 ml/d (1 ml/kcal-fluid balance) or per doctor Nutrition Diagnosis 1. Inadequate oral intake related to medical condition as evidenced by documented PO of 50% Intervention 1. Recommend continuing regular diet. 2.Recommend Ensure Enlive BID for poor PO. Monitor/Evaluate Goal: PO intake at least 75% of estimated needs Monitor: PO intake, Labs, GI function F/U in 3-5 days as moderate risk 09/07-
--- NOTE | 2018-09-04 13:27 | NUR ---
1. Recommend continuing regular diet. 2.Recommend Ensure Enlive BID for poor PO.
[2018-09-04 13:46] VITALS: BP 119/69
--- NOTE | 2018-09-04 14:56 | NUR ---
REVIEWED DISCHARGE INFORMATION WITH PATIENT AT THIS TIME. ALL QUESTIONS WHERE ANSWERED. INFORMED PATIENT ON DISCHARGE MEDICATIONS, ALONG WITH FOLLOW UP DOCTORS APPOINTMENT. PATIENT STATED "OK, I UNDERSTAND, THANK YOU".
--- NOTE | 2018-09-04 15:57 | NUR ---
PATIENT WAS DISCHARGED AT THIS TIME. DC HOME INSTRUCTIONS PROVIDED, GIVEN MEDICATION /PRESCRIPTTION EDUCATION . INSTRUCTED PATIENT TO FINISH MEDICATION ADVISED, AND TO NOT STOP WHEN FEELS BETTER. INSTRUCTIONS ON DRINKING LOTS OF FLUIDS AND GETTING A LOT OF REST, WAS PROVIDED. MADE PATIENT AWARE TO FOLLOW UP WITH PATIENTS APPOINTMENT, AND FOLLOW UP WITH PCP. APPOINTMENT WAS GIVEN WRITTEN FOR PATIENT. PATIENT VERBALIZED UNDERSTANDING. PATIENT WAS TRANSFERRED VIA WHEELCHAIR TO [facility], WAS AWAITING. PATIENT HAD ALL PERSONAL BELONGINGS AND PRESCRIPTION. PATIENT WAS FREE OF RESPIRATORY DISTRESS AT THIS TIME.
== END 2018-09-04 18:34 | disposition home or self-care (01) | DRG 380 ==
LOC: ED 14:40 → DU 23:16 → MU 23:16 → DU 09-02 16:31 → MU 09-03 14:56
PROVIDERS: Emergency Medicine; Internal Medicine Gastroenterology; ADMIT Family Medicine
PROC: 0DB78ZX Excision of Stomach, Pylorus, Via Natural or Artificial Opening Endoscopic, Diagnostic (ICD-10-PCS; principal; 2018-09-02 12:00)
DX: K22.11 Ulcer of esophagus with bleeding (principal); N17.0 Acute kidney failure with tubular necrosis; D62 Acute posthemorrhagic anemia; E87.1 Hypo-osmolality and hyponatremia; K76.6 Portal hypertension; E11.9 Type 2 diabetes mellitus without complications; I10 Essential (primary) hypertension; I85.01 Esophageal varices with bleeding; K70.30 Alcoholic cirrhosis of liver without ascites; F10.20 Alcohol dependence, uncomplicated; E03.9 Hypothyroidism, unspecified; K44.9 Diaphragmatic hernia without obstruction or gangrene; K21.9 Gastro-esophageal reflux disease without esophagitis; D69.59 Other secondary thrombocytopenia; Y90.0 Blood alcohol level of less than 20 mg/100 ml; E86.0 Dehydration; R74.0 Nonspecific elevation of levels of transaminase and lactic acid dehydrogenase [LDH]; E83.42 Hypomagnesemia; Z87.891 Personal history of nicotine dependence; Z79.84 Long term (current) use of oral hypoglycemic drugs
CPT/HCPCS: 43235; 83880; 84439; 97116-GP; G0480; J0171; J0744; J1200; J1610; J2250; J2310; J2354; J2405; J2765; J2916; J3010; J3490; J7030; J8597; Q0092; Q9967

== ENCOUNTER 2018-10-03 11:26 | Emergency (ER) | payer OTHER, MEDICARE ==
[~2018-10-03] VITALS: Ht 154.9 cm; Wt 68.0 kg
[~2018-10-03 11:26] MED LIST changes: +BIA500 PO; +FERROUS SULFAT325 M2 PO; +FLA500 PO; +LAC30L PO; +NATURAL IRON65 MG PO; +PROPRANOLOL HCL10 MG PO; +PROTONIX40 MG/Pac1 PO; +REG10 PO
[2018-10-03 11:34] VITALS: Ht 154.9 cm; Wt 68.0 kg
[2018-10-03 15:11] LABS: BASOPHIL % 0.5 % (0-2); PLATELET COUNT 189 x10^3mcL (130-400)
[2018-10-03 15:13] LABS: RED CELL DISTRIBUTION WIDTH 15.9 % (11.5-14.5)
[2018-10-03 15:33] LABS: CARBON DIOXIDE 27.6 mmol/L (21-32); CHLORIDE SERUM 103 mmol/L (98-107); CREATININE SERUM 0.9 mg/dL (0.6-1.0); GLUCOSE SERUM 118 mg/dL (74-106); POTASSIUM SERUM 3.5 mmol/L (3.5-5.1); SODIUM SERUM 143 mmol/L (136-145)
[2018-10-03 15:38] LABS: ALBUMIN 3.7 g/dL (3.4-5.0); ALKALINE PHOSPHATASE 57 U/L (46-116); ALT/SGPT 32 U/L (14-59); AST/SGOT 38 U/L (15-37); BILIRUBIN TOTAL 0.3 mg/dL (0.20-1.00); MAGNESIUM 1.8 mg/dL (1.8-2.4); TOTAL PROTEIN, SERUM 7.3 g/dL (6.4-8.2)
[2018-10-03 17:25] LABS: AMPHETAMINE QUAL UR NONE DETECTED (See below)
[2018-10-03 20:14] VITALS: BP 120/60
== END 2018-10-03 20:14 | disposition home or self-care (01) ==
LOC: ED 11:26
PROVIDERS: Emergency Medicine
DX: F10.129 Alcohol abuse with intoxication, unspecified (principal); E11.9 Type 2 diabetes mellitus without complications; I11.0 Hypertensive heart disease with heart failure; I50.9 Heart failure, unspecified; Z88.0 Allergy status to penicillin
CPT/HCPCS: G0480; J3490